=== PATIENT | male | born 1970 | race Caucasian/White ===

== ENCOUNTER 2024-05-21 10:12 | Outpatient (CLI) | payer OTHER, SELFPAY ==
[2024-05-21 10:57] LABS: Basophils # 0.1 10^3/uL (0.0-0.1); Basophils % 0.8 %; Eosinophils # 0.1 10^3/uL (0.0-0.8); Eosinophils % 0.7 %; Lymphocytes # 1.4 10^3/uL (0.8-4.8); Lymphocytes % 16.3 %; Mean Corpuscular HGB Conc 33.6 g/dL (30-55); Mean Corpuscular Hemoglobin 35.5 pg (27-33); Mean Corpuscular Volume 105.7 fl (82-101); Mean Platelet Volume 11.6 fL (7.4-10.4); Monocytes # 0.7 10^3/uL (0.2-0.9); Monocytes % 8.3 %; Neutrophils # 6.24 10^3/uL (1.8-7.7); Neutrophils % 73.5 %; Nucleated Red Blood Cells % 0 %; Platelet Count 85 10^3/cmm (157-399); Red Blood Count 3.69 10^6/uL (3.85-5.65); Red Cell Distribution Width 14.1 % (12.1-15.1); White Blood Count 8.48 10^3/uL (3.29-11.43)
[2024-05-21 11:10] LABS: Partial Thromboplastin Time 45.7 SECONDS (23.9-36.7)
[2024-05-21 11:12] LABS: Ammonia 27 umol/L (16-60)
[2024-05-21 11:13] LABS: Alanine Aminotransferase 26 U/L (0-41); Albumin Level 2.7 g/dL (3.5-5.2); Alkaline Phosphatase 119 U/L (40-130); Anion Gap 14.9 (5-19); Aspartate Amino Transferase 50 U/L (0-40); Blood Urea Nitrogen 24 mg/dL (6-20); Calcium 9.2 mg/dL (8.5-10.5); Carbon Dioxide 26 mmol/L (22-29); Chloride 97 mmol/L (98-107); Globulin 4.7 g/dL (1.3-4.6); Glomerular Filtration Rate 42.5 mL/min (90-130); Glucose 98 mg/dL (65-115); Iron 23 ug/dL (59-158); Osmolality Calculated 282 mOsm/kg (285-295); Percent Saturation 21.1 % (20-50); Potassium 3.9 mmol/L (3.5-5.1); Sodium 134 mmol/L (136-145); Total Iron Binding Capacity 109 mcg/dl; Total Protein 7.4 g/dL (6.6-8.7); Unsaturated Iron Binding 86 ug/dL (112-347)
[2024-05-21 11:30] LABS: Ferritin 2334 ng/mL (30-400)
[2024-05-21 11:31] LABS: Total Bilirubin 7.1 mg/dL (0.15-1.2)
[2024-05-21 11:53] LABS: Tumor Marker Alpha Fetoprotein 1.9 ng/mL (0-8.3)
== END 2024-05-21 10:13 | disposition home or self-care (01) ==
PROVIDERS: Visit Provider Nurse Practitioner
DX: K74.60 Unspecified cirrhosis of liver (principal)
CPT/HCPCS: 36415; 80053; 82105; 82140; 82728; 83540; 83550; 85025; 85610; 85730